=== PATIENT | male | born 1980 | race Caucasian/White ===

== ENCOUNTER 2024-06-21 22:13 | Emergency (ER) | payer MEDICAID, SELFPAY ==
[2024-06-21 22:21] VITALS: BP 129/94; PULSE 117; RESP 18; TEMP 38.7; O2SAT 98; BMI 25.1
[2024-06-21] MEDS: ACETAMINOPHEN 500 MG TABLET 1000 MG PO (22:30)
[2024-06-21 23:08] LABS: PCR FLU A POSITIVE PCR FLU A (Negative); PCR FLU B Negative PCR FLU B (Negative); PCR RSV Negative PCR RSV (Negative); SARS PCR* Negative SARS-CoV-2 (Negative)
--- NOTE | 2024-06-21 23:11 | ED.GENADULT ---
HPI - General Adult General Date Seen: 06/21/24 Chief complaint: Cough Stated complaint: difficulty breathing Time Seen by Provider: 06/21/24 23:10 History of Present Illness HPI narrative: 44-year-old male presenting the ER today with his with concern for fever, headache, feeling dizzy, coughing, feeling short of breath. He is generally healthy with no history of tobacco use, asthma, heart or lung disease, diabetes or immune disease. He 1st had symptoms yesterday with a mildly scratchy throat. Today he has had addition of other symptoms including cough, rattling in his chest and some wheezing sounds, headache, body aches, high fever, chills, generalized weakness. He is not having nausea, vomiting, or diarrhea. He has not really been around anyone else who is very sick. His daughter is at a mild respiratory illness but no high fevers. No known exposure to influenza. Related Data Home Medications ?Medication ?Instructions ?Recorded ?Confirmed No Known Home Medications 06/21/24 06/21/24 Allergies Allergy/AdvReac Type Severity Reaction Status Date / Time Penicillins AdvReac Verified 06/21/24 22:24 PFSH [facility] Social History Smoking Status: Never smoker Non-prescribed substance use: denies use Exam Narrative: Exam Narrative: Constitutional: Appears well-developed and well-nourished. Alert. Conversant. Non toxic. Pleasant. HENT: Head: Atraumatic. Nose: Nose normal. Tympanic membranes normal. Mouth/Throat: Oral mucosa is clear and moist. no trismus. Pharynx normal. Tonsils symmetric. No tonsillar enlargement, erythema, or exudate. Eyes: Conjunctivae normal. EOM normal. Pupils equal, round, and reactive to light. No scleral icterus. Neck: Normal range of motion. Neck supple. No tracheal deviation present. Cardiovascular: Normal rate, regular rhythm. No gallop. No friction rub. No murmur heard. Symmetric radial artery pulses Pulmonary/Chest: Effort normal. No stridor. No respiratory distress. No wheezes. No rales. No rhonchi . No tenderness. Abdominal: Soft.No distension. No mass. No tenderness. No rebound. No guarding. Musculoskeletal: RUE: Normal range of motion. No tenderness. No deformity LUE: Normal range of motion. No tenderness. No deformity RLE: Normal range of motion. No edema. No tenderness. No deformity LLE: Normal range of motion. No edema. No tenderness. No deformity Lymph: No cervical adenopathy. Neurological: Alert and oriented to person, place, and time. Normal strength. CN II-VII intact. No sensory deficit. GCS eye subscore is 4. GCS verbal subscore is 5. GCS motor subscore is 6. Normal coordination Skin: Skin is warm and dry. No rash noted. No pallor. Normal capillary refill. Psychiatric: Normal mood. Normal affect. Const: Vital Signs, click to edit/add: Vital Signs - 24 hr 06/21/24 22:21 Temperature 101.6 F H Pulse Rate [Pulse Oximeter] 117 H Respiratory Rate 18 Blood Pressure [Ri ght Upper Arm] 129/94 H Pulse Oximetry 98 Oxygen Delivery Me thod Room Air Course Vital Signs Vital signs: Initial Vital Signs Respiratory Effort Spontaneous, Non-Labored, Short of Breath 06/21/24 22:14 Respiratory Depth Normal 06/21/24 22:14 Respiratory Pattern Normal 06/21/24 22:14 Vital Signs Temperature 101.6 F H 06/21/24 22:21 Pulse Rate 117 H 06/21/24 22:21 Respiratory Rate 18 06/21/24 22:21 Blood Pressure 129/94 H 06/21/24 22:21 Pulse Oximetry 98 06/21/24 22:21 Oxygen Delivery Method Room Air 06/21/24 22:21 Temperature 101.6 F H 06/21/24 22:21 Pulse Rate 117 H 06/21/24 22:21 Respiratory Rate 18 06/21/24 22:21 Blood Pressure 129/94 H 06/21/24 22:21 Pulse Oximetry 98 06/21/24 22:21 Oxygen Delivery Method Room Air 06/21/24 22:21 Medications Administered Medications: Discontinued Medications Generic Name Dose Route Start Last Admin Trade Name Freq PRN Reason Stop Dose Admin Acetaminophen 1,000 mg 06/21/24 23:24 06/21/24 22:30 Acetaminophen 500 Mg Tablet PO 06/21/24 23:25 1,000 mg ONCE ONE Administration Medical Decision Making MDM Narrative Medical decision making narrative: This patient presents for evaluation of cough, fever, chills, myalgias, headache, sore throat. This is consistent with an upper respiratory tract infection. Viral testing positive for influenza A. There is no signs at this point of serious bacterial infection such as OM, RPA, epiglottitis, [employer], strep pharyngitis, pneumonia, sinusitis, meningitis, bacteremia, serious bacterial infection. He does not have any wheezing on his lung exam to his suggest bronchospasm or asthma. Given clear lungs, fever curve, no hypoxia and no respiratory distress I do not feel a CXR is indicated at this point as the probability of bacterial pneumonia is very unlikely. There are no gastrointestinal symptoms at this point and no signs of dehydration. Close followup with primary care physician is indicated. Return to ED for fever > 103, protracted vomiting, confusion, or other worsening. Discussed treatment options for influenza. He is in the 48 hour window in which he might benefit from Tamiflu. After discussion, he and his choose not to treat with Tamiflu. It will treat supportively for now. Precautions for return to the ER reviewed. Lab Data Labs: Lab Results 06/21/24 Range/Units 22:25 SARS-CoV-2 (PCR) Negative SARS-CoV-2 (Negative) Influenza Type A (PCR) POSITIVE PCR FLU A A (Negative) Influenza Type B (PCR) Negative PCR FLU B (Negative) RSV (PCR) Negative PCR RSV (Negative) Discharge Plan Discharge Clinical Impression: Influenza A Patient Disposition: Home, Self-Care Condition: Stable Instructions: Influenza (DC) Additional Instructions: As we discussed, your test is positive for influenza a today. This is a viral illness that usually takes about a week to get better. Please try to treat your fever with Tylenol or ibuprofen as needed. Drink plenty fluids stay hydrated. Rest. Stay home from work until you are feeling better and and your fever has been gone for 24 hours If you have worsening trouble breathing, chest pain, uncontrolled vomiting or diarrhea, dehydration, weakness, or other worsening illness, please see your doctor immediately or come back to the ER. Prescriptions: No Action No Known Home Medications Stand Alone Forms: [facility] Info Instructions
--- OUTSIDE RECORDS SUMMARY | 2024-06-21 23:31 | XMS_ITS | Clinical Summary ---
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 [facility] Allergies Active Allergy Reactions Criticality Noted Date Comments Amoxicillin 11/26/2005 HIVES: Hives Cat Dander 08/01/2010 Medications Medication Sig Dispensed Refills Start Date End Date Status atovaquone-proguanil (MALARONE) 250-100 MG tabletIndications:Ot her specified prophylactic or treatment measure Take 1 Tab by mouth daily. Start 2 days before entering malaria zone, each day you are there, then 7 days after leaving area 25 Tab 0 08/01/2010 Active Additional Information Patient not taking.Reported on 08/27/2022 ciprofloxacin (CIPRO) 500 MG tabletIndications:Ot her specified prophylactic or treatment measure Take 1 Tab by mouth two times a day. For 1-3 days for severe diarrhea. 6 Tab 0 08/01/2010 Active Additional Information Patient not taking.Reported on 08/27/2022 azithromycin (ZITHROMAX) 500 MG tabletIndications:En counter for other procedures for purposes other than remedying health state,Encounter for health counseling related to travel Take 1 Tablet (500 mg) by mouth daily. For 1-3 days for severe diarrhea. 3 Tablet 08/27/2022 Active Active Problems Problem Noted Date Diagnosed Date Otalgia 11/26/2005 Overview (02/24/2015): [facility] Acute suppurative otitis med ia without spontaneous rupture of ear drum 10/05/2005 Overview (02/24/2015): [facility] Acute conjunctivitis 10/05/2005 Overview (02/24/2015): [facility] Cough 10/05/2005 Immunizations Name Administration Dates Next Due Flu Vac (3+ yrs) 02/16/2009 HepA Adult (19+ yrs) 08/01/2010 IPV (Polio) 08/01/2010 Tdap 08/01/2010 Typhoid (Typhim Vi, IM) 08/01/2010 Varicella 08/01/2010(Deferred: Immune by Rosangela zuniga) YF (Yellow Fever) 08/01/2010 Social History Tobacco Use Types Packs/Day Years Used Date Smoking Tobacco: Never Alcohol Use Standard Drinks/Week Comments Not Asked 0 (1 standard drink = 0.6 oz pur e alcohol) Sex and Gender Information Value Date Recorded Sex Assigned at Not on file Gender Identity Not on file Sexual Orientation Not on file Last Filed Vital Signs Vital Sign Reading Time Taken Comments Blood Pressure 136/86 08/27/2022 8:30 AM CDT Pulse 72 08/27/2022 8:30 AM CDT Temperature - - Respiratory Rate - - Oxygen Saturation - - Inhaled Oxygen Concentration - - Weight 72.6 kg (160 lb) 08/27/2022 8:30 AM CDT Height - - Body Mass Index - - Plan of Treatment Health Maintenance Due Date Last Done Comments Hep C Screening (Preventive Services) 1982 HIV Screening (Preventive Services) 1998 Adult Preventive Visit 2000 HepB (1) 2001 HepA (2 of 2 - Risk 2-dose series) 02/01/20112010 Cholesterol 2017 DTaP/Tdap/Td (2 - Tdap) 08/01/2020 08/01/2010 COVID-19 Vaccine ( - 2023-2 5 season) 2024 Influenza (#1) 2024 02/16/2009 Zoster/Shingles (1 of 2) 2032 IPV (Polio) Aged Out 08/01/2010 No longer eligi ble based on patient's age to complete this topic HPV Vaccine Aged Out No longer eligi ble based on patient's age to complete this topic Hib Aged Out No longer eligi ble based on patient's age to complete this topic MCV4 Aged Out No longer eligi ble based on patient's age to complete this topic Pneumococcal Aged Out No longer eligi ble based on patient's age to complete this topic
== END 2024-06-21 23:35 | disposition home or self-care (01) ==
LOC: ED 23:29
PROVIDERS: Emergency Provider Emergency Medicine
DX: J10.1 Influenza due to other identified influenza virus with other respiratory manifestations (principal)
CPT/HCPCS: 87631; 99282; 99283; A9270